=== PATIENT | female | born 1940 | race Hispanic/Latino ===

== ENCOUNTER 2022-08-09 14:28 | Emergency (ER) | payer MEDICARE | END 2022-08-09 16:44 | disposition home or self-care (01) | LOC: BURERS 14:28 | DX: S52.502A Unspecified fracture of the lower end of left radius, initial encounter for closed fracture (principal); S00.83XA Contusion of other part of head, initial encounter; S20.212A Contusion of left front wall of thorax, initial encounter; R53.1 Weakness; I10 Essential (primary) hypertension; Z87.891 Personal history of nicotine dependence; X58.XXXA Exposure to other specified factors, initial encounter | CPT/HCPCS: 70450 ==